=== PATIENT | male | born 1965 | race African-American/Black ===

== ENCOUNTER 2016-12-14 23:19 | Emergency (ER) | payer MEDICARE, BC ==
[~2016-12-14] VITALS: Ht 188 cm; Wt 139.8 kg
[~2016-12-14 23:19] MED LIST: COUMADIN2.5 MG OR; COUMADIN5 MG OR; DILAUDID4 MG PO; DILTIAZEM180 MG OR; DILTIAZEM240 M1 OR; DIOVAN160 MG OR; FOLBEE PLU1 OR; FOSRENOL1000 MG OR; KEFLEX500 MG OR; LORTAB 7.5 OR; METOPROL TAR25 M1 OR; NORVASC10 MG OR; RENAGEL 800MG800 MG OR; REQUIP1 MG OR; SENSIPAR30 MG OR; SENSIPAR60 MG OR; TOPROL XL OR
[2016-12-14] MEDS ORDERED: DILTIAZEM240 MG PO (23:49)
[2016-12-14] MEDS ORDERED: ASPIRIN325 MG PO (23:51)
[2016-12-15 01:55] VITALS: BP 110/68
== END 2016-12-15 01:58 | disposition home or self-care (01) ==
LOC: ED 23:19
DX: S92.351A Displaced fracture of fifth metatarsal bone, right foot, initial encounter for closed fracture (principal); I48.91 Unspecified atrial fibrillation; I13.2 Hypertensive heart and chronic kidney disease with heart failure and with stage 5 chronic kidney disease, or end stage renal disease; N18.6 End stage renal disease; I50.9 Heart failure, unspecified; X58.XXXA Exposure to other specified factors, initial encounter; Z99.2 Dependence on renal dialysis

== ENCOUNTER 2019-12-15 13:30 | Emergency (ER) | payer MEDICARE, BC ==
[~2019-12-15] VITALS: Ht 188 cm; Wt 128.5 kg
[~2019-12-15 13:30] MED LIST changes: +ASPIRIN325 MG PO; +DILTIAZEM240 MG PO
[2019-12-15] MEDS ORDERED: RENAGEL 800MG800 MG PO (13:49)
[2019-12-15] MEDS ORDERED: IRON325 M1 PO (13:50)
[2019-12-15 14:11] LABS: HEMATOCRIT 46.3 % (39.0-50.0); HEMOGLOBIN 14.3 g/dl (14.0-18.0); IMMATURE GRANULOCYTES 0.4 % (0.0-5.0); MEAN CORPUSCULAR HGB CONC 30.9 g/dL CAL (32.0-36.0); NEUT# 3.93 thou/uL (1.82-7.42); RED BLOOD COUNT 5.51 mill/uL (4.70-6.10); RED CELL DISTRI WIDTH 14.8 % (11.5-15.5)
[2019-12-15 14:32] LABS: POTASSIUM 4.3 mmol/l (3.5-5.1)
[2019-12-15 14:38] LABS: CREATININE 5.5 mg/dL (0.7-1.3)
[2019-12-15 17:16] VITALS: BP 128/71
== END 2019-12-15 17:16 ==
LOC: ED 13:30
PROVIDERS: Family Medicine
DX: I20.0 Unstable angina (principal); I13.2 Hypertensive heart and chronic kidney disease with heart failure and with stage 5 chronic kidney disease, or end stage renal disease; N18.6 End stage renal disease; I50.9 Heart failure, unspecified; F17.200 Nicotine dependence, unspecified, uncomplicated; Z99.2 Dependence on renal dialysis; Z20.828 Contact with and (suspected) exposure to other viral communicable diseases
CPT/HCPCS: J1644

== ENCOUNTER 2021-08-21 16:39 | Observation (INO) | payer MEDICARE, BC ==
[~2021-08-21] VITALS: Ht 188 cm; Wt 142.0 kg
[2021-08-21] VITALS (13 sets, daily range): BP systolic 102–137; BP diastolic 69–84
[~2021-08-21 16:39] MED LIST changes: -FOSRENOL1000 MG OR; +FOSRENOL1000 MG PO; +IRON325 M1 PO; +RENVELA800 MG PO
--- NOTE | 2021-08-21 17:00 | NUR ---
PT TO ROOM VIA WHEELCHAIR, TRANSFERRED TO BED WITH STAND BY ASSIST
[2021-08-21 18:15] LABS: HEMATOCRIT 44.4 % (39.0-50.0); HEMOGLOBIN 14.1 g/dl (14.0-18.0); IMMATURE GRANULOCYTES 0.5 % (0.0-5.0); MEAN CELL VOLUME 87.6 fL CALC (80.0-100.0); MEAN CORPUSCULAR HGB 27.8 pG CALC (26.0-32.0); MEAN CORPUSCULAR HGB CONC 31.8 g/dL CAL (32.0-36.0); NEUT# 8.73 thou/uL (1.82-7.42); RED BLOOD COUNT 5.07 mill/uL (4.70-6.10); RED CELL DISTRI WIDTH 14.1 % (11.5-15.5)
[2021-08-21 18:29] LABS: ALBUMIN 3.9 g/dL (3.2-5.0); TOTAL PROTEIN 8.3 g/dL (6.3-8.2)
[2021-08-21 18:37] LABS: BILIRUBIN, TOTAL 0.6 mg/dL (0.0-1.4); POTASSIUM 5.3 mmol/l (3.5-5.1)
[2021-08-21 18:38] LABS: CREATININE 16.3 mg/dL (0.7-1.3)
--- NOTE | 2021-08-21 19:26 | NUR ---
REPORT GIVEN TO VIVIAN DUENAS
[2021-08-21] MEDS ORDERED: RENA-VIT1 PO (20:23)
--- NOTE | 2021-08-21 21:19 | NUR ---
REPORT CALLED TO MS. AWAITING RESULTS OF COVID SWAB.
--- NOTE | 2021-08-21 22:20 | NUR ---
RECIEVED REPORT FROM ER. PT ARRIVED TO [facility] ROOM 268. PT IS A/OX3. ASSESSMENT COMPLETED. RESPIRATIONS EVEN AND UNLAORED. LUNG SOUNDS CLEAR. ON ROOM AIR. HEART RHYTHM NORMAL WITH TELE IN PLACE (#5) BOWEL SOUNDS ACTIVE, LBM 08/21/21. #20G RAC FLUSHED, SITE APEARS HEALTHY AND PATENT. PEDAL PULSES WEAK.TRACE EDEMA NOTED TO BLE. WOUND TO FOURTH DIGIT OF LEFT FOOT. WOUND CULTURE AND PHOTO OBATINED.FOUL ODOR AND BROWNISH DRAINAGE NOTED.WOUND CLEANSED AND DRY DRESSING APPLIED. PT DENIES OF ANY PAINS OR DISCOMFORTS. PT ORIENTED TO ROOM AND CALL SYSTEM. NKDA, ALLERGY BAND AND FALL RISK BAND APPLIED. LEFT LIMB ALERT DUE TO DIALYSIS CATH. PT DENIES OF ANY ADDITIONAL NEEDS. WILL CONTINUE TO MONITOR.
[2021-08-22] VITALS (8 sets, daily range): BP systolic 103–165; BP diastolic 59–95
--- NOTE | 2021-08-22 01:56 | NUR ---
PT SLEEPING IN SEMI FOWLERS POSITION. REPSIRATIONS EVEN AND UNLABORED. NO SIGNS OF ANY DISTRESS.SAFTEY PRECAUTIONS IN PLACE. WILL CONTINUE TO MONITOR
--- NOTE | 2021-08-22 04:06 | NUR ---
PT SLEEPING IN SEMI FOWLERS POSITION. RESPIRATIONS EVEN AND UNLABORED. #20G RAC REMAINS IN PLACE. TELE MONITORING IN PLACE. NO SIGNS OF ANY PAINS OR DISCOMFORTS. DRESSING TO LEFT FOOT REMAINS CDI. ALL SAFTEY PRECAUTIONS IN PLACE WITH CALL LIGHT IN REACH.
--- NOTE | 2021-08-22 04:53 | NUR ---
DRESSING TO LEFT LEG CAME OFF. DRY DRESSING REAPPLIED. NEW DRESSING REMAINS CDI
[2021-08-22] MEDS ORDERED: ISOSORB MONO30 MG PO (07:39)
[2021-08-22] MEDS ORDERED: FOSRENOL1000 MG PO ×2 (07:39→12:18)
[2021-08-22] MEDS ORDERED: RENVELA800 MG PO (07:41)
[2021-08-22] MEDS ORDERED: CALCITRIOL0.25 MC1 PO (07:43)
[2021-08-22 08:31] LABS: HEMOGLOBIN 12.3 g/dl (14.0-18.0); MEAN CELL VOLUME 86.7 fL CALC (80.0-100.0); MEAN CORPUSCULAR HGB 27.8 pG CALC (26.0-32.0); MEAN CORPUSCULAR HGB CONC 32.1 g/dL CAL (32.0-36.0); RED BLOOD COUNT 4.42 mill/uL (4.70-6.10); RED CELL DISTRI WIDTH 14.1 % (11.5-15.5)
[2021-08-22 08:33] LABS: HEMATOCRIT 38.3 % (39.0-50.0)
[2021-08-22 09:04] LABS: ALBUMIN 3.3 g/dL (3.2-5.0); MAGNESIUM 2.2 mg/dL (1.6-2.3); POTASSIUM 4.5 mmol/l (3.5-5.1)
[2021-08-22 09:21] LABS: CREATININE 16.8 mg/dL (0.7-1.3)
--- NOTE | 2021-08-22 09:33 | NUR ---
pt off the floor at this time for mri. stable at time of departure.
[2021-08-22] MEDS ORDERED: LABETALOL HYDR200 MG PO (12:04)
[2021-08-22] MEDS ORDERED: ZPAK PO (12:31)
--- NOTE | 2021-08-22 14:57 | NUR ---
S: CODI MCKEON is a 56 M who presents with cellulitis. He has a history of hypertension, CHF, CRF. All medications in patient's chart were reviewed. O: VS: BP 165/94 mmHg, P 82 bpm , RR 18 bpm, T 98.9 F W 138 kg, HT 74 in, Scr= 16.8 mg/dl, CrCl= 9.5 ml/min A: Blood cultures are pending. Wound culture is pending. P: Patient is on Zosyn 2.25 g IV Q8H. Vancomycin ordered for pharmacy to dose. Administer Vancomycin 1500 mg IV x1 on 08/22 @ 1700. Pt is on dialysis. Vancomycin trough is drawn before next scheduled dialysis treatment on 08/25. Vancomycin goal trough is between 10-15 mcg/ml. Pharmacy will follow and or advise on antibiotics use as needed.
--- NOTE | 2021-08-22 19:00 | NUR ---
RECIEVED REPORT FROM HENRIQUE REEVES
--- NOTE | 2021-08-22 19:30 | NUR ---
PT RESTING IN SEMI FOWLERS POSITION. PT A/OX3. RESPIRATIONS EVEN AND UNLABORED. LUNG SOUNDS CLEAR. HEART RHYTHM NORMAL. BOWEL SOUNDS ACTIVE, LBM 08/22/21. PEDAL PULSES WEAK. TRACE EDEMA NOTED TO BLE. DRESSING TO LEFT FOOT REAMINS CDI, RE-INFORCED WITH KAT WRAP. #20G RAC FLUSHED, SITE PATENT. LEFT LIMB ALERT, DIALYSIS CATH. PT DENIES OF ANY PAINS OR DISCOMFORTS. HEATED BLANKET PROVIDED. ALL SAFTEY PRECAUTIONS IN PLACE WITH CALL LIGHT IN REACH.
--- NOTE | 2021-08-23 00:42 | NUR ---
PT SITTING ON SIDE OF BED. RESPIRATIONS ARE EVEN AND UNLABORED ON ROOM AIR.TELE MONITORING IN PLACE. #20G RAC REMAINS IN PLACE. PT DENIES OF ANY COMPLAINTS. ALL SAFTEY PRECAUTIONS ARE IN PLACE WITH CALL LIGHT IN REACH.
[2021-08-23 03:25] VITALS: BP 112/62
--- NOTE | 2021-08-23 04:24 | NUR ---
PT SLEEPING IN SEMI FOWLERS POSITION. RESPIRATIONS ARE EVEN AND UNLABORED ON ROOM AIR. #20G RAC REMAINS IN PLACE. TELE MONITORING IN PLACE.NO SIGNS OF ANY DISTRESS NOTED. ALL SAFTEY PRECAUTIONS IN PLACE WITH CALL LIGHT IN REACH.
[2021-08-23 05:35] LABS: HEMATOCRIT 40.1 % (39.0-50.0); HEMOGLOBIN 12.7 g/dl (14.0-18.0); MEAN CELL VOLUME 88.1 fL CALC (80.0-100.0); MEAN CORPUSCULAR HGB 27.9 pG CALC (26.0-32.0); MEAN CORPUSCULAR HGB CONC 31.7 g/dL CAL (32.0-36.0); RED BLOOD COUNT 4.55 mill/uL (4.70-6.10)
[2021-08-23 06:11] LABS: MAGNESIUM 1.9 mg/dL (1.6-2.3); POTASSIUM 4.8 mmol/l (3.5-5.1)
[2021-08-23 06:23] LABS: CREATININE 10.2 mg/dL (0.7-1.3)
--- NOTE | 2021-08-23 06:25 | NUR ---
CRITICAL RECIEVED FROM EDWARD. CREATININE 10.2. AWARE OF TREND
[2021-08-23 08:00] VITALS: BP 114/61
--- NOTE | 2021-08-23 08:00 | NUR ---
GOT REPORT FROM [employer] OPERATOR NURSE. CHECKED AND ASSESSED PATIENT. PATIENT IS AOX4. STATES THAT HE IS FEELING GOOD AND NO ISSUES AT THE MOMENT.
[2021-08-23 10:24] VITALS: BP 110/67
--- NOTE | 2021-08-23 12:02 | NUR ---
PATIENT SLEEPING IN BED. PATIENT IS COMFORTABLE AND HAS NO COMPLAINTS AT THIS TIME.
[2021-08-23 15:42] VITALS: BP 113/63
[2021-08-23 18:44] VITALS: BP 138/76
--- NOTE | 2021-08-23 20:00 | NUR ---
PATIENT AWAKE ALERT AND ORIENTEDX3 SITTING ON THE SIDE OF THE BED TALKING ON THE PHONE. NO COMPLAINTS AT THIS TIME. DRESSING TO LEFT FOOT INTACT AND SECURED WITH KAT WRAP. TELE MONIOTR. IN PLACE. IV SITE TO RIGHT WRIST INTACT. AV FISTUL TO LEFT UPPER ARM. BRUITT AND THRILL IS POS. PATIENT IS ESRD ON H/D. STATES THAT HE VOIDS ONLY SCANT AMTS. NO COMPLAINTS AT THIS TIME. SAFETY PRECAUTIONS REINFORCED. CALL LIGHT IN REACH. WILL CONT TO MONITOR.
[2021-08-24 00:11] VITALS: BP 115/70
--- NOTE | 2021-08-24 00:31 | NUR ---
PATIENT STILL AWAKE-NO COMPLAINTS. TELE MONITOR IN PLACE. SALINE LOCK TO RIGHT WRIST INTACT. CALL LIGHT IN REACH. WILL CONT TO MONITOR.
[2021-08-24 02:54] VITALS: BP 110/47
[2021-08-24 04:00] VITALS: BP 110/47
--- NOTE | 2021-08-24 04:15 | NUR ---
PATIENT RESTING IN BED-APPEARS SLEEPING WITH EYES CLOSED. RESPS EVEN AND UNLABORED. TELE MONITOR IN PLACE WITH LAST READING SR-89. CALL LIGHT IN REACH. WILL CONT TO MONITOR.
[2021-08-24 06:02] LABS: ALBUMIN 3.1 g/dL (3.2-5.0)
[2021-08-24 06:16] LABS: CREATININE 12.8 mg/dL (0.7-1.3); POTASSIUM 5.2 mmol/l (3.5-5.1)
--- NOTE | 2021-08-24 06:17 | NUR ---
ED FROM LAB CALLED WITH CRITICAL [id number]-95.8. PATIENT IS ESRD-H/D PATIENT. NEXT H/D ON WEDNESDAY. AWARE OF TREND. WILL CONT TO MONITOR.
[2021-08-24 06:51] VITALS: BP 110/65
--- NOTE | 2021-08-24 08:00 | NUR ---
GOT REPORT FROM RELATIONSHIP MANAGER NURSE. CHECKED AND ASSESSED PATIENT. AOX4. PATIENT STATES THAT HE HAS NO COMPLAINTS EXCEPT BEING COLD ALL NIGHT. OFFERED TO TURN AC WARMER AND EXTRA BLANKET, BUT PATIENT SAID NO THAT HE WAS FINE NOW.
[2021-08-24 09:51] VITALS: BP 128/59
--- NOTE | 2021-08-24 12:00 | NUR ---
PATIENT IS ASLEEP, RESTING WELL. NO COMPLAINTS AT THIS TIME. HE STATES THAT HE NEEDS A BOOT FOR HIS FOOT HE WILL NOT BE ABLE TO USE HIS SHOE. SPOKE TO NURSING SUPERVISIOR AND SHE WILL BRING ONE UP FROM ER.
[2021-08-24] MEDS ORDERED: ROCEPHIN 1 GM1 GM IM (13:48)
--- NOTE | 2021-08-24 16:32 | NUR ---
Discharge instructions given. Patient verbalizes understanding of same. Discharged in stable condition via Wheelchair to Home with SELF. All belongings sent with pt.
== END 2021-08-24 15:33 | disposition home or self-care (01) ==
LOC: ED 16:39 → ED-I 18:30 → ED 18:48 → MS2 18:49
PROVIDERS: Internal Medicine Nephrology; Nurse Practitioner; ADMIT Internal Medicine; ATTEND Internal Medicine
PROC: 5A1D70Z Performance of Urinary Filtration, Intermittent, Less than 6 Hours Per Day (ICD-10-PCS; principal; 2021-08-22)
DX: M86.8X7 Other osteomyelitis, ankle and foot (principal); L03.032 Cellulitis of left toe; L97.528 Non-pressure chronic ulcer of other part of left foot with other specified severity; I13.2 Hypertensive heart and chronic kidney disease with heart failure and with stage 5 chronic kidney disease, or end stage renal disease; N18.6 End stage renal disease; I50.9 Heart failure, unspecified; E87.1 Hypo-osmolality and hyponatremia; E87.5 Hyperkalemia; N25.81 Secondary hyperparathyroidism of renal origin; F17.210 Nicotine dependence, cigarettes, uncomplicated; B96.89 Other specified bacterial agents as the cause of diseases classified elsewhere; Z99.2 Dependence on renal dialysis; Z20.822 Contact with and (suspected) exposure to COVID-19
CPT/HCPCS: J3370